=== PATIENT | male | born 1975 | race African-American/Black ===

== ENCOUNTER 2020-03-01 19:28 | Emergency (ER) | payer MEDICAID ==
[~2020-03-01] VITALS: Ht 180.3 cm; Wt 133.4 kg
[2020-03-01 19:39] VITALS: Ht 180.3 cm; Wt 133.4 kg
[2020-03-01 21:11] LABS: BASOPHIL % 0.4 % (0-2); PLATELET COUNT 209 x10^3mcL (130-400)
[2020-03-01 21:15] LABS: RED CELL DISTRIBUTION WIDTH 15.1 % (11.5-14.5)
[2020-03-01 21:28] LABS: ALBUMIN 3.4 g/dL (3.4-5.0); BILIRUBIN TOTAL 0.3 mg/dL (0.20-1.00); CALCIUM 8.5 mg/dL (8.5-10.1); CARBON DIOXIDE 31.2 mmol/L (21-32); CREATININE SERUM 2.6 mg/dL (0.7-1.3); TOTAL PROTEIN, SERUM 6.8 g/dL (6.4-8.2)
[2020-03-01 22:38] VITALS: BP 183/108
[2020-03-02 00:36] LABS: AMPHETAMINE QUAL UR NONE DETECTED (See below)
== END 2020-03-02 00:23 | disposition home or self-care (01) ==
LOC: ED 19:28
PROVIDERS: Emergency Medicine
DX: R42 Dizziness and giddiness (principal); I10 Essential (primary) hypertension; F17.200 Nicotine dependence, unspecified, uncomplicated; E66.9 Obesity, unspecified; J45.909 Unspecified asthma, uncomplicated
CPT/HCPCS: 82962; 99406